=== PATIENT | female | born 1980 | race Caucasian/White ===

== ENCOUNTER → 2017-09-24 | Outpatient (CLI) | payer BC | LOC: FIMAGING 07:36 | PROVIDERS: ATTEND Obstetrics & Gynecology | DX: O09.522 Supervision of elderly multigravida, second trimester (principal); O09.292 Supervision of pregnancy with other poor reproductive or obstetric history, second trimester; Z3A.19 19 weeks gestation of pregnancy ==

== ENCOUNTER → 2017-10-18 | Outpatient (CLI) | payer BC | LOC: FIMAGING 09:47 | PROVIDERS: ATTEND Obstetrics & Gynecology | DX: O09.522 Supervision of elderly multigravida, second trimester (principal); O43.212 Placenta accreta, second trimester; O44.02 Complete placenta previa NOS or without hemorrhage, second trimester; Z3A.22 22 weeks gestation of pregnancy ==

== ENCOUNTER → 2017-11-15 | Outpatient (CLI) | payer BC | LOC: FIMAGING 08:56 | PROVIDERS: ATTEND Obstetrics & Gynecology | DX: O09.522 Supervision of elderly multigravida, second trimester (principal); O44.02 Complete placenta previa NOS or without hemorrhage, second trimester; Z3A.26 26 weeks gestation of pregnancy ==